=== PATIENT | male | born 1965 | race Caucasian/White ===

== ENCOUNTER 2019-11-19 18:04 | Inpatient (IN) | payer OTHER ==
[~2019-11-19] VITALS: Ht 175.3 cm; Wt 68.0 kg
[2019-11-19 18:46] VITALS: BP 131/78
--- NOTE | 2019-11-19 19:52 | NUR ---
PATIENT AMBULATED TO CHAIR D.
--- NOTE | 2019-11-19 19:53 | NUR ---
C/O BILAT FOOT PAIN X 5 DAYS with numbness and tingling. Pedal pulses 2+ bilaterally. PT DENIES INJURY. States has been picking at bottom of feet. Pt is homeless and states has been "walking a lot". Denies fever. States chills. HX: DM, HTN, HEP C, COLITIS RX: basaglar, metformin, lisinopril
--- NOTE | 2019-11-19 19:59 | NUR ---
MADI LEON EVALUATING PT AT BEDSIDE.
--- NOTE | 2019-11-19 20:08 | NUR ---
REPORT TO MARICRUZ LARKIN, TRANSFER OF CARE AT THIS TIME.
[2019-11-19] MEDS ORDERED: PIPERACILLIN/TAZOBACTAM 3.375 GM in DEXTROSE 5% 50 ML IV ONE (20:10)
[2019-11-19] MEDS ORDERED: VANCOMYCIN 1,000 MG in DEXTROSE 5% 250 ML IV ONE (20:10)
[2019-11-19] MEDS ORDERED: NACL 0.9% 1,000 ML IV SCH (20:10)
--- NOTE | 2019-11-19 20:16 | NUR ---
PT TAKEN TO XRAY VIA WHEELCHAIR
--- NOTE | 2019-11-19 20:27 | NUR ---
RETURNED FROM RADIOLOGY
[2019-11-19] MEDS ORDERED: VANCOMYCIN 1,000 MG VIAL ONE (20:29)
[2019-11-19] MEDS ORDERED: PIPERACILLIN/TAZOBACTAM 3.375 GM VIAL IV ONE (20:30)
[2019-11-19 21:13] LABS: BASOPHILS # (AUTO) 0.1 K/uL (0.00-0.22); BASOPHILS % (AUTO) 0.6 % (0.0-2.0); EOSINOPHILS # (AUTO) 0.2 K/uL (0-0.4); EOSINOPHILS % (AUTO) 1.3 % (0.0-4.0); HEMATOCRIT 31.2 % (36-52); HEMOGLOBIN 10.4 g/dL (12.0-18.0); LYMPHOCYTES # (AUTO) 3.1 K/uL (2.0-11.5); LYMPHOCYTES % (AUTO) 21.3 % (20.5-51.1); MEAN CORPUSCULAR HEMOGLOBIN 27 pg (27-31); MEAN CORPUSCULAR HGB CONC 33 g/dL (33-37); MEAN CORPUSCULAR VOLUME 81.7 fL (80-94); MONOCYTES # (AUTO) 0.9 K/uL (0.8-1.0); MONOCYTES % (AUTO) 6.2 % (1.7-9.3); NEUTROPHILS # (AUTO) 10.1 K/uL (1.8-7.7); NEUTROPHILS % (AUTO) 70.6 % (42.2-75.2); PLATELET COUNT (AUTO) 441 K/uL (140-450); RED BLOOD CELL COUNT(AUTO) 3.82 MIL/uL (4.20-6.10); RED CELL DISTRIBUTION WIDTH 14.4 % (11.6-13.7); WHITE BLOOD COUNT (AUTO) 14.4 K/uL (4.8-10.8)
[2019-11-19 21:20] LABS: BARBITURATE, URINE NEG. ng/ml (NEG <=200); BENZODIAZEPINE, URINE NEG. ng/mL (NEG <=200); CANNABINOID, URINE NEG. ng/mL (NEG <=50); COCAINE, URINE NEG. ng/mL (NEG <=300); OPIATE, URINE NEG. ng/mL (NEG <=2000); PHENCYCLIDINE SCREEN,URINE NEG. ng/mL (NEG <=25)
[2019-11-19 21:29] LABS: APPEARANCE,URINE SL CLOUDY (CLEAR); BILIRUBIN,URINE NEGATIVE (NEGATIVE); BLOOD, URINE NEGATIVE (NEGATIVE); COLOR,URINE YELLOW (YELLOW); LEUKOCYTE ESTERASE ,URINE NEGATIVE (NEGATIVE); NITRITE, URINE NEGATIVE (NEGATIVE); UGLUCOSE 3+ (NEGATIVE)
[2019-11-19 21:50] LABS: ANION GAP 16.5 (8-16); CARBON DIOXIDE 24.4 mmol/L (21-32); CREATININE 0.7 mg/dL (0.6-1.3); POTASSIUM 3.9 mmol/L (3.5-5.1)
[2019-11-19 21:55] LABS: ALBUMIN 2.7 g/dL (3.4-5.0); TOTAL BILIRUBIN 0.1 mg/dL (0.0-1.0)
[2019-11-19] MEDS ORDERED: ALUMINUM HYD/MAG/SIMETHICONE 30 ML UDC PO PRN (22:25)
[2019-11-19] MEDS ORDERED: MAGNESIUM OXIDE 400 MG TAB PO PRN (22:25)
[2019-11-19] MEDS ORDERED: DOCUSATE SODIUM 250 MG GELCAP PO PRN (22:25)
[2019-11-19] MEDS ORDERED: MORPHINE SULFATE 2 MG/ML SYR IVP PRN (22:25)
[2019-11-19] MEDS ORDERED: POTASSIUM CHLORIDE 10 MEQ TABER PO PRN (22:25)
[2019-11-19] MEDS ORDERED: ALBUTEROL 0.083% 2.5 MG/3 ML NEBU INH PRN (22:25)
[2019-11-19] MEDS ORDERED: IPRATROPIUM 0.02% 0.5 MG/2.5 ML NEBU INH PRN (22:25)
[2019-11-19] MEDS ORDERED: BISACODYL 10 MG SUPP RC PRN (22:25)
[2019-11-19] MEDS ORDERED: SODIUM PHOSPHATE 118 ML ENEM RC PRN (22:25)
[2019-11-19] MEDS ORDERED: ACETAMINOPHEN 325 MG TAB PO PRN (22:25)
[2019-11-19] MEDS ORDERED: diphenhydrAMINE 50 MG/ML VIAL IVP PRN (22:25)
[2019-11-19] MEDS ORDERED: ZOLPIDEM 5 MG TAB PO PRN (22:25)
[2019-11-19] MEDS ORDERED: DEXTROSE 50% 50 ML SYR IVP PRN (22:25)
[2019-11-19] MEDS ORDERED: LORazepam 2 MG/ML VIAL IVP PRN (22:25)
[2019-11-19] MEDS ORDERED: guaiFENesin DM 200/20 MG-10 ML 10 ML UDC PO PRN (22:25)
[2019-11-19] MEDS ORDERED: ACETAMINOPHEN 650 MG SUPP RC PRN (22:25)
[2019-11-19] MEDS ORDERED: MAG SULF 2000 MG/WATER PREMIX 50 ML IV PRN (22:25)
[2019-11-19] MEDS ORDERED: cloNIDine 0.1 MG TAB PO PRN (22:25)
[2019-11-19] MEDS ORDERED: HYDROcodone/APAP 5/325 MG 1 TAB TAB PO PRN (22:25)
[2019-11-19] MEDS ORDERED: ONDANSETRON 4 MG/2 ML VIAL IVP PRN (22:25)
--- NOTE | 2019-11-19 22:30 | NUR ---
RECEIVED BEDSIDE REPORT FROM ED NURSE AND TOOK OVER CARE OF PT. PT CAME FROM ED W/ C/O BILATERAL FOOT PAIN. DX IS DIABETIC FOOT. PT IS A&OX4, ABLE TO WALK W/ MINIMAL ASSISTANCE. PT IS VERBAL AND COOPERATIVE. PT HAS HX OF DIABETES, HTN, HEP C, COLITIS. NKA. PT IS FULL CODE. PT HAS 20 G ON L WRIST. NO SOB. PT HAS UMBILICAL HERNIA. PAIN 5/10 ON BOTH FEET. PT'S FOOT WOUND IS LOCATED ON THE 2ND AND 3RD TOES OF THE RIGHT FOOT, RIGHT DORSAL ASPECT OF THE FOOT AND THE 2ND TOE OF THE LEFT FOOT. VSS. 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 BG 272. PT BELONGINGS OF CIGARETTES, ADJUNCT PROFESSOR OF ENGLISH, MONEY AND BACKPACK WERE GIVEN TO SECURITY. CALL LIGHT WITHIN REACH, BED LOCKED AND LOWEST POSITION. WILL CONTINUE TO MONITOR.
--- NOTE | 2019-11-19 22:35 | NUR ---
RT AT BEDSIDE
--- NOTE | 2019-11-19 22:40 | NUR ---
Pt transferred to Med/Surg via WHEELCHAIR, REPORT GIVEN TO YESENIA LARKIN
[2019-11-19 22:45] VITALS: BP 144/83
[2019-11-19] MEDS: BLOOD GLUCOSE MONITORING 1 DEV DEV FS SCH (23:02)
[2019-11-19] MEDS: INSULIN LISPRO SLIDING SCALE 100 UNITS/ML VIAL SUBQ PRN (23:24)
[2019-11-19] MEDS: HYDROcodone/APAP 5/325 MG 1 TAB TAB PO PRN (23:38)
--- NOTE | 2019-11-19 23:38 | NUR ---
PT C/O PAIN MONICA LEG 5/10, PAIN MEDICATION ADMINISTERED, PT TOLERATED WELL, NO DISTRESS NOTED, CALL LIGHT WITHIN REACH, WILL CONTINUE TO MONITOR.
[2019-11-20] MEDS ORDERED: LISI10TA11 PO (01:18)
--- NOTE | 2019-11-20 01:22 | NUR ---
CHECKED ON PT, PT SLEEPING, NO DISTRESS NOTED, CALL LIGHT WITHIN REACH, WILL CONTINUE TO MONITOR.
[2019-11-20] MEDS ORDERED: CLINDAMYCIN 600 MG/4 ML VIAL ONE (04:19)
[2019-11-20] MEDS: CLINDAMYCIN 600 MG in DEXTROSE 5% 50 ML IV SCH ×3 (04:27→20:04)
--- NOTE | 2019-11-20 04:27 | NUR ---
DUE MEDICATION GIVEN, PT TOLERATED WELL, NO DISTRESS NOTED, CALL LIGHT WITHIN REACH, WILL CONTINUE TO MONITOR.
[2019-11-20 06:53] LABS: BASOPHILS % (AUTO) 0.5 % (0.0-2.0); EOSINOPHILS # (AUTO) 0.2 K/uL (0-0.4); EOSINOPHILS % (AUTO) 1.7 % (0.0-4.0); HEMATOCRIT 30.1 % (36-52); LYMPHOCYTES # (AUTO) 2.2 K/uL (2.0-11.5); LYMPHOCYTES % (AUTO) 22.9 % (20.5-51.1); MEAN CORPUSCULAR HEMOGLOBIN 27 pg (27-31); MEAN CORPUSCULAR HGB CONC 33 g/dL (33-37); MONOCYTES # (AUTO) 0.5 K/uL (0.8-1.0); MONOCYTES % (AUTO) 5.5 % (1.7-9.3); NEUTROPHILS # (AUTO) 6.7 K/uL (1.8-7.7); NEUTROPHILS % (AUTO) 69.4 % (42.2-75.2); PLATELET COUNT (AUTO) 399 K/uL (140-450); RED BLOOD CELL COUNT(AUTO) 3.67 MIL/uL (4.20-6.10); RED CELL DISTRIBUTION WIDTH 14.4 % (11.6-13.7); WHITE BLOOD COUNT (AUTO) 9.7 K/uL (4.8-10.8)
--- NOTE | 2019-11-20 07:00 | NUR ---
PATIENT HAS BEEN SCREENED AND CATEGORIZED HIGH NUTRITION RISK. PATIENT WILL BE SEEN WITHIN 1-2 DAYS OF ADMISSION. 11/21/19-11/22/19 KYLE KOCH MS, RDN
[2019-11-20] MEDS: BLOOD GLUCOSE MONITORING 1 DEV DEV FS SCH ×5 (07:10→20:32)
[2019-11-20] MEDS: INSULIN LISPRO SLIDING SCALE 100 UNITS/ML VIAL SUBQ PRN ×3 (07:12→20:38)
--- NOTE | 2019-11-20 07:21 | NUR ---
ENDORSED PT TO DAY SHIFT NURSE MEET LARKIN, PT STABLE, NO DISTRESS NOTED, CALL LIGHT WITHIN REACH.
--- NOTE | 2019-11-20 07:22 | NUR ---
RECEIVED BEDSIDE REPORT FROM MAT PUNCHER NURSE YESENIA. PATIENT IN STABLE CONDITION. SKIN WARM AND DRY TO TOUCH. RESPIRATIONS EVEN AND UNLABORED, ROOM AIR. IV INTACT AND PATENT. SAFETY MEASURES IN PLACE. BED IN LOW POSITION. CALL LIGHT WITHIN REACH AT BEDSIDE. WILL CONTINUE TO MONITOR.
[2019-11-20 08:00] VITALS: BP 138/76
--- NOTE | 2019-11-20 09:41 | NUR ---
GAVE ORDERED DUE MEDICATIONS AT THIS TIME. PT TOLERATED WELL. WILL CONTINUE TO MONITOR.
--- NOTE | 2019-11-20 11:15 | NUR ---
PT OFF UNIT FOR NM BONE SCAN. PT IN STABLE CONDITION.
--- NOTE | 2019-11-20 12:20 | NUR ---
BACK ON UNIT AFTER 1ST PART NM BONE SCAN.
--- NOTE | 2019-11-20 14:50 | NUR ---
OFF UNIT FOR NM BONE SCAN 2ND PART
--- NOTE | 2019-11-20 15:49 | NUR ---
BACK FROM NUCLEAR MEDICINE BONE TRI PHASE. PT TOLERATED WELL.
--- NOTE | 2019-11-20 15:55 | NUR ---
GAVE REPORT TO DAY SHIFT NURSE RAJAT FOR CONTINUITY OF CARE. PT IN STABLE CONDITION.
[2019-11-20 16:00] VITALS: BP 140/79
--- NOTE | 2019-11-20 17:33 | NUR ---
PT EATING DINNER AT THIS TIME. PT IN STABLE CONDITION. RESPIRATIONS EVEN AND UNLABORED. BED IN LOW POSITION. CALL LIGHT AT BEDSIDE. WILL CONTINUE TO MONITOR.
--- NOTE | 2019-11-20 19:30 | NUR ---
RECEIVED PATIENT IN STABLE CONDITION FROM AM SHIFT NURSE FOR CONTINUITY OF CARE. RESPIRATIONS EVEN, UNLABORED. IV SITE TO LEFT WRIST 20 G PATENT/INTACT, FLUSHES WELL. PATIENT IS AMBULATORY AND CONTINENT OF BOWEL AND BLADDER. ENCOURAGED PATIENT TO USE CALL LIGHT FOR ASSISTANCE WHEN GETTING UP DUE TO DIABETIC FOOT. PATIENT VERBALIZED UNDERSTANDING AND IS VERY RECEPTIVE TO EDUCATION AND TEACHING AT THIS TIME. NO C/O PAIN. NO S/SX ACUTE DISTRESS. CALL LIGHT WITHIN REACH. WILL CONTINUE TO MONITOR.
[2019-11-20] MEDS: HYDROcodone/APAP 5/325 MG 1 TAB TAB PO PRN (20:04)
--- NOTE | 2019-11-20 20:04 | NUR ---
PATIENT C/O ACHING FOOT PAIN 02/05. MEDICATED ORDERED. CALL LIGHT WITHIN REACH. WILL CONTINUE TO MONITOR.
--- NOTE | 2019-11-20 20:16 | NUR ---
RECEIVED PT FROM AM SHIFT. PT IN NO APPARENT RESPIRATORY DISTRESS AT THIS TIME; HR 98, RR 18, SPO2 98% ON ROOM. CLEAR BREATH SOUNDS. NO INDICATION FOR HHN PRN TX AT THIS TIME. PT WAS INFORMED TO CALL RN OR RT FOR PRN TX WHEN EXPERIENCING SOB. BVM AT BEDSIDE AND HOB > 30. WILL CONTINUE TO MONITOR PT.
--- NOTE | 2019-11-20 21:04 | NUR ---
REASSESSED PAIN LEVEL AT 0/10. PATIENT IS ASLEEP. NO S/SX ACUTE DISTRESS. CALL LIGHT WITHIN REACH. WILL CONTINUE TO MONITOR.
--- NOTE | 2019-11-20 23:08 | NUR ---
MADE ROUNDS. PATIENT IS ASLEEP AND IN STABLE CONDITION. NO C/O PAIN. NO S/SX ACUTE DISTRESS. CALL LIGHT WITHIN REACH. WILL CONTINUE TO MONITOR.
[2019-11-21] VITALS: BP 144/86
--- NOTE | 2019-11-21 01:10 | NUR ---
PATIENT ASLEEP AND IN STABLE CONDITION. NO C/O PAIN. NO S/SX ACUTE DISTRESS. CALL LIGHT WITHIN REACH. WILL CONTINUE TO MONITOR.
--- NOTE | 2019-11-21 03:03 | NUR ---
MADE ROUNDS. PATIENT IS ASLEEP AND IN STABLE CONDITION. NO C/O PAIN. NO S/SX ACUTE DISTRESS. CALL LIGHT WITHIN REACH. WILL CONTINUE TO MONITOR.
[2019-11-21] MEDS: CLINDAMYCIN 600 MG in DEXTROSE 5% 50 ML IV SCH ×3 (04:51→21:30)
[2019-11-21] MEDS: HYDROcodone/APAP 5/325 MG 1 TAB TAB PO PRN ×3 (04:51→21:37)
--- NOTE | 2019-11-21 04:51 | NUR ---
PATIENT C/O ACHING DIABETIC FOOT PAIN 02/05. MEDICATED ORDERED. CALL LIGHT WITHIN REACH. WILL CONTINUE TO MONITOR.
[2019-11-21] MEDS: INSULIN LISPRO SLIDING SCALE 100 UNITS/ML VIAL SUBQ PRN ×3 (05:06→21:39)
--- NOTE | 2019-11-21 05:25 | NUR ---
PATIENT VERBALIZED FEELING HYPERGLYCEMIC. CHECKED BLOOD GLUCOSE AT 411 MG/DL. HUMALOG COVERAGE GIVEN ORDERED. PATIENT VERBALIZED FEELING BETTER. CALL LIGHT WITHIN REACH. WILL CONTINUE TO MONITOR.
--- NOTE | 2019-11-21 05:51 | NUR ---
REASSESSED PAIN LEVEL, PATIENT IS ASLEEP. NO S/SX ACUTE DISTRESS. CALL LIGHT WITHIN REACH. WILL CONTINUE TO MONITOR.
--- NOTE | 2019-11-21 07:16 | NUR ---
RECEIVED BEDSIDE REPORT FROM BUSINESS PERFORMANCE MANAGER NURSE ROSA. PATIENT IN STABLE CONDITION. SKIN WARM AND DRY TO TOUCH. RESPIRATIONS EVEN AND UNLABORED ON ROOM AIR. IV INTACT AND PATENT. SAFETY MEASURES IN PLACE. BED IN LOW POSITION AND CALL LIGHT WITHIN REACH AT BEDSIDE. WILL CONTINUE TO MONITOR.
[2019-11-21] MEDS: BLOOD GLUCOSE MONITORING 1 DEV DEV FS SCH ×4 (07:30→21:41)
[2019-11-21 08:00] VITALS: BP 137/88
--- NOTE | 2019-11-21 08:55 | NUR ---
ADMINISTERED PRN PAIN MEDICATION PER PATIENTS REQUEST. PATIENT TOLERATED WELL. NO SIGNS OF DISTRESS NOTED. RESPIRATIONS EVEN AND UNLABORED. WILL CONTINUE TO MONITOR
--- NOTE | 2019-11-21 10:33 | NUR ---
HOURLY ROUNDING. PATIENT ASLEEP. EASILY AROUSABLE. NO SIGNS OF DISTRESS NOTED. RESPIRATIONS EVEN AND UNLABORED. SAFETY MEASURES IN PLACE AND CALL LIGHT WITHIN REACH. WILL CONTINUE TO MONITOR
--- NOTE | 2019-11-21 11:15 | NUR ---
PT OFF UNIT FOR NM BONE SCAN. PT IN STABLE CONDITION. Addendum: 11/21/19 at 2005 by Cristela Jain RN WRONG PT
--- NOTE | 2019-11-21 12:22 | NUR ---
BACK ON UNIT AFTER 1ST PART NM BONE SCAN. Addendum: 11/21/19 at 2006 by Cristela Jain RN WRONG PT
--- NOTE | 2019-11-21 12:50 | NUR ---
HOURLY ROUNDING. PT OBSERVED EATING LUNCH TRAY. PROVIDED EXTRA CUP OF COFFEE PER PATIENT REQUEST. NO SIGNS OF DISTRESS NOTED. RESPIRATIONS EVEN AND UNLABORED. SAFETY MEASURES IN PLACE AND CALL LIGHT WITHIN REACH. WILL CONTINUE TO MONITOR
--- NOTE | 2019-11-21 15:10 | NUR ---
HOURLY ROUNDING. PATIENT OBSERVED IN BED WATCHING TV. NO SIGNS OF DISTRESS NOTED. RESPIRATIONS EVEN AND UNLABORED. SAFETY MEASURES IN PLACE AND CALL LIGHT WITHIN REACH. WILL CONTINUE TO MONITOR
[2019-11-21 16:00] VITALS: BP 138/91
[2019-11-21] MEDS: MUPIROCIN CA NASAL 2% 1GM TUBE NS SCH (17:22)
[2019-11-21] MEDS: CHLORHEXADINE GLUC 2% CLOTH TP SCH (17:23)
--- NOTE | 2019-11-21 19:01 | NUR ---
CONSENT SIGNED FOR PICC LINE INSERTION
--- NOTE | 2019-11-21 19:05 | NUR ---
RECEIVED BEDSIDE REPORT FROM AM SHIFT NURSE. PATIENT IS LYING IN BED AWAKE AND ALERT. NO SOB OR DISTRESS NOTED ON ROOM AIR. IV ACCESS ON LEFT WRIST 20 GAUGE. PATENT, INTACT AND INFUSING WELL. PATIENT IS AMBULATORY. PATIENT NOTED WITH OPEN WOUNDS ON RIGHT DIABETIC FOOT. BED IN LOW. SAFETY MEASURES IN PLACE. INITIAL ASSESSMENT DONE. CALL LIGHT WITHIN PATIENT REACH. WILL CONTINUE TO MONITOR PATIENT.
--- NOTE | 2019-11-21 19:53 | NUR ---
RECEIVED PT FROM AM SHIFT. PT IN NO APPARENT RESPIRATORY DISTRESS AT THIS TIME; HR 96, RR 18, SPO2 98% ON ROOM. CLEAR BREATH SOUNDS. NO INDICATION FOR HHN PRN TX AT THIS TIME. PT WAS INFORMED TO CALL RN OR RT FOR PRN TX WHEN EXPERIENCING SOB. BVM AT BEDSIDE AND HOB > 30. WILL CONTINUE TO MONITOR PT.
--- NOTE | 2019-11-21 21:41 | NUR ---
PATIENT HAD A BLOOD GLUCOSE RESULT OF 301 WITH 8 UNITS OF REGULAR HUMALOG INSULIN GIVEN AT THIS TIME. WILL CONTINUE TO MONITOR PATIENT.
[2019-11-21] MEDS ORDERED: VANCOMYCIN PER PHARMACY MC PRN (22:10)
[2019-11-21] MEDS ORDERED: VANCOMYCIN HCL 1,250 MG in NACL 0.9% 250 ML IV SCH (22:50)
[2019-11-21] MEDS: VANCOMYCIN 500 MG VIAL ONE ×2 (23:28→23:41)
[2019-11-21] MEDS: VANCOMYCIN 1,000 MG VIAL ONE ×3 (23:28→23:41)
--- NOTE | 2019-11-21 23:33 | NUR ---
VANCOMYCIN 1,250MG IV STARTED AT THIS TIME. WILL CONTINUE TO MONITOR PATIENT.
[2019-11-22 00:20] VITALS: BP 133/98
--- NOTE | 2019-11-22 03:13 | NUR ---
REPORT RECEIVED FROM EDUARDO LARKIN. PT IN STABLE CONDITION.
--- NOTE | 2019-11-22 03:13 | NUR ---
ENDORSED TO TRAE MOSCOSO FOR CONTINUITY OF CARE. PATIENT IN STABLE CONDITION. CALL LIGHT WITHIN PATIENT REACH.
--- NOTE | 2019-11-22 04:50 | NUR ---
PT AWAKE AND ALERT AND WANTS A SNACK. NO S/S OF DISTRESS NOTED. WILL CONTINUE TO MONITOR.
[2019-11-22] MEDS: BLOOD GLUCOSE MONITORING 1 DEV DEV FS SCH ×3 (05:30→17:10)
[2019-11-22] MEDS: INSULIN LISPRO SLIDING SCALE 100 UNITS/ML VIAL SUBQ PRN ×3 (05:32→17:12)
--- NOTE | 2019-11-22 05:32 | NUR ---
BS 259. 6 UNITS OF HUMALOG GIVEN. PT TOLERATED WELL.
--- NOTE | 2019-11-22 07:00 | NUR ---
PT SLEEPING COMFORTABLY BUT AROUSABLE. PT IN STABLE CONDITION.
[2019-11-22 07:18] LABS: BASOPHILS # (AUTO) 0.1 K/uL (0.00-0.22); EOSINOPHILS # (AUTO) 0.3 K/uL (0-0.4); EOSINOPHILS % (AUTO) 4.1 % (0.0-4.0); HEMATOCRIT 38.2 % (36-52); LYMPHOCYTES # (AUTO) 3.2 K/uL (2.0-11.5); LYMPHOCYTES % (AUTO) 39.4 % (20.5-51.1); MEAN CORPUSCULAR HEMOGLOBIN 27 pg (27-31); MEAN CORPUSCULAR HGB CONC 34 g/dL (33-37); MEAN CORPUSCULAR VOLUME 80.5 fL (80-94); MONOCYTES # (AUTO) 0.5 K/uL (0.8-1.0); MONOCYTES % (AUTO) 6.6 % (1.7-9.3); NEUTROPHILS % (AUTO) 48.9 % (42.2-75.2); PLATELET COUNT (AUTO) 585 K/uL (140-450); RED BLOOD CELL COUNT(AUTO) 4.74 MIL/uL (4.20-6.10); RED CELL DISTRIBUTION WIDTH 14.5 % (11.6-13.7); WHITE BLOOD COUNT (AUTO) 8.2 K/uL (4.8-10.8)
--- NOTE | 2019-11-22 07:30 | NUR ---
RECEIVED REPORT FROM BRANDING MACHINE OPERATOR NURSE .PT IS NI BED IN STABLE CONDITION. NO DISTRESS NOTED. NO COMPLAINS OF PAIN. PATIENT IS ALERT AND AWAKE AND RESPONSIVE. CALL LIGHT IN REACH.
[2019-11-22 08:00] VITALS: BP 134/88
--- NOTE | 2019-11-22 09:30 | NUR ---
PT IS AWAKE AND RESPONSIVE. NO COMPLAINS OF PAIN REPORTED. CALL LIGHT IN REACH.
--- NOTE | 2019-11-22 11:21 | NUR ---
WOUND CARE EVALUATION NOTE: REASON FOR EVALUATION: DIABETIC ULCER WOUNDS SKIN ASSESSMENT DONE WITH THIS 53 Y/O MALE PT ADMITTED TO [facility] WITH INITIAL DX OF BLE PAIN. PAST MEDICAL HX INCLUDES HTN, DM, HEPATITIC C AND CHRONIC WOUNDS TO TOES. ALL ABOVE INFORMATION OBTAINED FROM ADMISSION H&P AND PT. PT IS AAX4. PER PT. HIS PRIMARY DOCTOR HAD REFEREED HIM TO A QUALITY ASSURANCE/R&D LAB TECHNICIAN AND HE FORGOT TO BRING HIS ID AND NOT ABLE TO SEE THE DOCTOR THEN. PT. SKIN IS WARM AND DRY, POOR PERSONAL HYGIENE OBSERVED. BLE NO HAIR GROWTH, NO EDEMA TO BILATERAL LOWER LEGS. BILATERAL DORSAL PEDAL PULSES PRESENT AND NORMAL, THICKEN FUNGAL NAILS OBSERVED X 10 T0ES. PLAN OF CARE DISCUSSED WITH PT. PT. VERBALIZING UNDERSTANDING INTEGUMENTARY: -XEROSIS TO BLE -CELLULITIS RIGHT DORSAL FOOT DRY SCALY WITH ERYTHEMA, AND +1 EDEMAS, ERYTHEMA EXTENDED TO RLE -DIABETIC ULCER TO LEFT 2ND TOE, 2.7X2X0.1CM, COLD AND STEPHANIE WOUND CYANOTIC, RIGHT 2ND TOE 1X0.8X0.1 COLD AND STEPHANIE WOUND CYANOTIC, AND RIGHT 3RD TOE 0.5X0.8X0.1 CM, STEPHANIE WOUND SKIN PALE WHITE . ALL WOUND BED ARE BROWN SCABBING, NO ODOR, WOUND EDGE WITH HYPERKERATOTIC BORDER, PAIN 0/10 -LEFT AND RIGHT HEELS THICK CALLUS WITH FISSURES RECOMMENDATIONS: -PAINT DIABETIC ULCERS TO LEFT 2ND TOE, RIGHT 2ND TOE AND RIGHT 3RD TOE WITH BETADINE TITA. BID AND MIKA -OFFLOAD BILATERAL HEELS BY PLACING PILLOWS UNDER CALVES UNLESS OTHERWISE CONTRAINDICATED -ENCOURAGE PT TO TURN AND REPOSITION Q2H, OFFLOAD SACRALCOCCYX BY TURNING RIGHT AND LEFT -CONTINUE TO FOLLOW RD RECOMMENDATIONS -CONTINUE TO FOLLOW WITH BONE SCAN RESULT WITH ID DOCTOR FOLLOW UP -CONTINUE TO FOLLOW UP OUT PATIENT QUALITY ASSURANCE/R&D LAB TECHNICIAN UPON DISCHARGED PLEASE CONTACT WOUND CARE NURSE FOR ANY QUESTION AND CHANGE OF WOUND CONDITION.
--- NOTE | 2019-11-22 12:10 | NUR ---
DC PLANNIN YRS OLD MALE HOME LESS PATIENT WAS ADMITTED FROM ER WITH A DX OF DIABETIC FOOT. PT HAS A HX OF HEP C, HTN AND DIABETES. BONE SCAN DONE SHOWED OSTEOMYELITICS, BLOOD CULTURE PENDING , STARTED IV VANCOMYCIN ROCEPHIN AND CLINDAMYCIN ID CONSULTED WITH DR GEORGES. DC PLAN TO GO TO SNF FOR MORE ABX. SS EVAL FOR HOMELESSNESS CM TO FOLLOW. Addendum: 11/22/19 at 1544 by Yaritza Aguirre DC PLANNING: ARRANGED TRANSPORT WITH [facility], CATERING TRUCK OPERATOR TIME 18:30 NOTIFIED SINAN LARKIN
[2019-11-22] MEDS ORDERED: VANCOMYCIN 750 MG in NACL 0.9% 250 ML IV SCH (13:00)
[2019-11-22] MEDS ORDERED: GAUZE TP SCH (13:00)
--- NOTE | 2019-11-22 13:22 | NUR ---
PT SIGNED INFORMED CONSENT FOR PICC LINE PLACEMENT. RISKS AND BENEFITS EXPLAINED BY DR. BRAND, PT VERBALIZED UNDERSTANDING. SPOKE WITH EULALIA-PICC LINE NURSE, ETA WILL BE IN AN HOUR. SINAN-TRAE ASSIGNED MADE AWARE.
--- NOTE | 2019-11-22 13:26 | NUR ---
Marketing Communications Leader Note: I faxed inquiry to [facility]. Per Zully from [facility] , patient has been accepted and may go to room 34B today, accepting MD is . Per Doughnut Icer Yaritza, she will contact [facility] for snf authorization.
--- NOTE | 2019-11-22 13:31 | NUR ---
PT IS IN BED AT THIS TIME. PT IS AWAKE AND RESPONSIVE. NO COMPLAINS OF PAIN REPORTED. SAFETY CHECK IN PLACE. CALL LIGHT IN REACH.
[2019-11-22] MEDS ORDERED: INFLUENZA VACCINE QUAD 0.5 ML SYR IMVAC PRN (14:50)
--- NOTE | 2019-11-22 15:00 | NUR ---
PT IS SITTING IN BED AT THIS TIME. PT IS ALERT AND RESPONSIVE. NO DISTRESS NOTED. NO COMPLAINS OF PAIN. CALL LIGHT IN REACH.
[2019-11-22] MEDS ORDERED: ERTA1VIA2 IV (15:24)
[2019-11-22] MEDS ORDERED: Vancomycin Per Pharmacy MC (15:24)
[2019-11-22] MEDS ORDERED: HUMSLIDE SUBQ (15:24)
[2019-11-22 16:00] VITALS: BP 138/87
[2019-11-22] MEDS: MUPIROCIN CA NASAL 2% 1GM TUBE NS SCH (16:11)
[2019-11-22] MEDS: CHLORHEXADINE GLUC 2% CLOTH TP SCH (17:12)
--- NOTE | 2019-11-22 18:41 | NUR ---
PT IS SITTING IN BED AT THIS TIME. PT IS ALERT AND RESPONSIVE. NO DISTRESS NOTED. NO COMPLAINS OF PAIN. PICC LINE IN PLACE. PER XRAY REPORT RECOMMENDED TO [facility] [address] RENEE. DR RENEE IS OKAY WITH THE CURRENT SETTINGS. NOTIFIED CHARGE NURSE. CALL LIGHT IN REACH.
--- NOTE | 2019-11-22 19:12 | NUR ---
SHIFT REPORT GIVEN TO NIGHT NURSE. PATIENT IS READY FOR DISCHARGE AND IS AWAITING [facility] TRANSPORTATION TO SNF FACILITY. PT. IS ALERT AND STABLE WITH NO COMPLAINTS OF PAIN.
--- NOTE | 2019-11-22 19:13 | NUR ---
RECEIVED BEDSIDE REPORT FROM AM SHIFT NURSE. PATIENT IS LYING IN BED WITH EYES CLOSED. VISIBLE CHEST RISE AND FALL NOTED. NO SOB OR DISTRESS NOTED. ON ROOM AIR.PICC LINE NOTED ON RIGHT UPPER ARM, PATENT AND INTACT. PATIENT NOTED WITH DIABETIC FOOT ULCER. BED IN LOW, SAFETY MEASURES IN PLACE. INITIAL ASSESSMENT DONE. CALL LIGHT PLACED WITHIN PATIENT REACH. WILL CONTINUE TO MONITOR PATIENT.
--- NOTE | 2019-11-22 20:20 | NUR ---
PATIENT DISCHARGED OUT OF UNIT AT THIS TIME VIA [facility] VIA 2 PERSON POCKETED SPRING ASSEMBLER. PATIENT AMBULATED TO [facility]. BELONGINGS TAKEN WITH PATIENT. PICC LINE NOTED IN RIGHT UPPER ARM, PATENT AND INTACT. WRISTBAND REMOVED. D/C PACKET GIVEN TO PATIENT. PATIENT IN STABLE CONDITION, NO SOB OR DISTRESS NOTED.
== END 2019-11-22 20:20 | DRG 344 ==
LOC: MED 18:04 → MTU 22:11
PROVIDERS: ADMIT Internal Medicine Pulmonary Disease; ATTEND Internal Medicine Pulmonary Disease
DX: E11.621 Type 2 diabetes mellitus with foot ulcer (principal); M86.8X7 Other osteomyelitis, ankle and foot; I96 Gangrene, not elsewhere classified; E11.65 Type 2 diabetes mellitus with hyperglycemia; L03.115 Cellulitis of right lower limb; E11.69 Type 2 diabetes mellitus with other specified complication; E11.52 Type 2 diabetes mellitus with diabetic peripheral angiopathy with gangrene; L97.519 Non-pressure chronic ulcer of other part of right foot with unspecified severity; B19.20 Unspecified viral hepatitis C without hepatic coma; I10 Essential (primary) hypertension; L97.529 Non-pressure chronic ulcer of other part of left foot with unspecified severity; M19.072 Primary osteoarthritis, left ankle and foot; Z59.0 Homelessness; Z87.891 Personal history of nicotine dependence; Z23 Encounter for immunization; Z91.14 Patient's other noncompliance with medication regimen
CPT/HCPCS: 36415; 71045; 73630; 78315; 80053; 80305; 81003; 82948; 83036; 83605; 85025; 86140; 87040; 87081; 94640; 96365; 99285; A9503; C1751; J0696; J2543; J3370; J3490; J7030; J7060; J7613; J7644; Q0092